=== PATIENT | male | born 1950 | race Caucasian/White ===

== ENCOUNTER → 2019-07-10 | Outpatient (CLI) | payer MEDICARE, OTHER ==
[~2019-07-10] MED LIST: CANA300T PO; GLIP10TA14 PO; LEVO200T6 PO; SIMV40TA3 PO
== END | disposition home or self-care (01) ==
LOC: VAS 16:32
PROVIDERS: ATTEND Internal Medicine
DX: I73.9 Peripheral vascular disease, unspecified (principal)
CPT/HCPCS: 93880; 93923